=== PATIENT | male | born 1950 | race African-American/Black ===

== ENCOUNTER 2017-08-08 15:50 | Emergency (ER) | payer OTHER ==
[2017-08-08 16:00] VITALS: BP 195/109; BMI 40.8
--- NOTE | 2017-08-08 16:31 | DR.GENAD ---
HPI - PCP Primary Care Physician: BOBBI URIOSTEGUI - HPI Comment HPI Comment: NO TRAUMA. PATIENT ON BLOOD THINNERS BUT HAVE NOT TAKEN MED FOR 10 DAYS. DENIES SOB. - Complaint/Symptoms Chief Complaint Doctors Comments: PAIN RIGHT HIP AND RLE TIMES 4 DAYS. Chief Complaint:: PAIN IN RIGHT LEG/HIP FOR THE LAST 3 OR 4 DAYS. PT STATES LAST TIME HE TOOK HIS BLOOD THINNER WAS LAST THURSDAY. - Nurses notes reviewed Nurses Notes Review: Yes - Source History Provided: Patient - Mode of Arrival Mode of Arrival: Ambulatory - Timing Onset of Chief Complaint: 08/06/17 Came on: Suddenly - Duration Duration: Constant Duration: Days - Severity Severity: Moderate PMH - PMH Past Medical History: Yes Past Medical History: CVA, GERD, Hypertension Past Medical History Comment: STROKE 1988 Past Surgical History: Yes Surgical History: Abdominal Surgery - Family History History of Family Medical Conditions: Yes Family Medical History: Coronary Artery Disease Family Medical History Comment: CVA - Social History Does patient currently use any type of tobacco product: No Have you used tobacco products in the last 12 months: No Type of Tobacco Use: None Does any household member use tobacco: No Alcohol Use: None Do you use any recreational Drugs:: No Lives With: Family Lives Where: Home - infectious screening In the last 2 months have you had wt loss of >10#?: NO Have you had fever, night sweats or hemotysis?: No Have you traveled outside the country in the last 6 months?: No Isolation: Standard ROS - Review of Systems Constitutional: No Symptoms Reported Eyes: No Symptoms Reported ENTM: No Symptoms Reported Respiratoy: No Symptoms Reported Cardiovascular: No Symptoms Reported Gastrointestinal/Abdominal: No Symptoms Reported Genitourinary: No Symptoms Reported Neurological: No Symptoms Reported Musculoskeletal: Right, Hip, Leg Integumentary: No Symptoms Reported Hematologic/Lymphatic: No Symptoms Reported Endocrine: No Symptoms Reported All Other Systems: Reviewed and Negative PE - Vital Signs Vitals: Temperature 97.6 F Pulse Rate 100 Respiratory Rate 22 Blood Pressure 195/109 O2 Sat by Pulse Oximetry 95 - General Limitations: No Limitations General Appearance: Alert - Head Head Exam: Normal Inspection - Eyes Eye exam: Normal Appearance - ENT ENT Exam: Normal Exam External Ear Exam: Normal External Inspection TM/Canal Exam: Bilateral Normal Nose Exam: Normal Nose Exam Mouth Exam: Normal Inspection Throat Exam: Normal Inspection - Neck Neck Exam: Normal Inspection - Chest Chest Inspection: Symmetric Chest Wall Rise - Respiratory Respiratory Exam: Normal Lung Sounds Bilat Respiratory Exam: Bilateral Clear to Auscultation - Cardiovascular Cardiovascular Exam: Regular Rate, Normal Rhythm, Normal Heart Sounds - Abdominal Exam Abdominal Exam: Normal Bowel Sounds, Soft. negative: Tenderness - Extremities Extremities Exam: Tenderness (LEFT HIP AND CALD TIMOTHY) - Back Back Exam: Paraspinal Tenderness - Neurologic Neurological Exam: Alert - Psychiatric Psychiatric Exam: Normal Affect, Normal Mood - Skin Skin Exam: Normal Color MDM - Differential Diagnosis Differential Diagnosis: DVT, SPRAIN, STRAIN Course - Treatment Treatment: SEE ORDERS - Education/Counseling Education/Counseling: Patient, Education Educated On: Treatment, Diagnosis, Needs for Follow Up ROR - Labs Reviewed Laboratory: D-Dimer 424 ng/mL (0-400) H* 08/08/17 17:10 - XRAY XRAY Interpreted by: Radiologist XRAY Findings: REPORT DISCUSS WITH PATIENT. - Diagnosis Discharge Problem: Musculoskeletal pain Muscle strain of left lower extremity Qualifiers: Encounter type: initial encounter Qualified Code(s): S86.912A - Strain of unspecified muscle(s) and tendon(s) at lower leg level, left leg, initial encounter - Discharge Plan Disposition: HOME, SELF-CARE Condition: Stable - Follow ups/Referrals Follow ups/Referrals: AVILA URIOSTEGUI [Primary Care Provider] - 3 days - Instructions Instructions: Musculoskeletal Pain Additional Instructions: RETURN TO ED IF WORSE. CONTINUE WITH BLOOD THINNER AT HOME.
--- NOTE | 2017-08-08 19:12 | VAS ---
Exam: Right lower extremity ultrasound exam History: Lower extremity swelling/pain Comparison: None Technique: Real-time duplex scan of the lower extremity venous system was performed using B-mode/tristan scale imaging, Doppler spectral analysis, and color flow. Findings: Evaluation of the deep veins of the right lower extremity from the common femoral vein thr ough the popliteal vein demonstrated normal patency and no evidence of DVT. There was normal gilbert sibility throughout the deep venous system. There was normal augmentation response, Valsalva respons e, and respiratory phasicity. The deep veins below the knee were patent. Conclusion: Normal right lower extremity venous exam. No evidence of DVT. Reported By:
[2017-08-08] MEDS ORDERED: SILVADENE ONE (19:55)
[2017-08-08] MEDS ORDERED: TORADOL TAB PO ONE ×2 (19:55)
[2017-08-08] MEDS ORDERED: SILVADENE TOP NR (20:00)
== END 2017-08-08 19:59 | disposition home or self-care (01) ==
LOC: ER 16:09
DX: S86.912A Strain of unspecified muscle(s) and tendon(s) at lower leg level, left leg, initial encounter (principal); M79.1 Myalgia; Y33.XXXA Other specified events, undetermined intent, initial encounter; Y92.9 Unspecified place or not applicable
CPT/HCPCS: 36415; 85378; 93971; 99283